=== PATIENT | female | born 1985 | race African-American/Black ===

== ENCOUNTER 2017-03-06 07:00 | Emergency (ER) | payer SELFPAY ==
[2017-03-06] MEDS ORDERED: predniSONE 20 MG TAB ONE (07:14)
== END 2017-03-06 08:17 | disposition home or self-care (01) ==
LOC: ERS 07:00
DX: J45.901 Unspecified asthma with (acute) exacerbation (principal); Z79.899 Other long term (current) drug therapy
CPT/HCPCS: 94640; J7506; J7620

== ENCOUNTER 2017-03-17 22:34 | Emergency (ER) | payer SELFPAY ==
[2017-03-17] MEDS ORDERED: Dexamethasone 4 MG TAB ONE ×2 (23:14)
[2017-03-17] MEDS ORDERED: Acetaminophen 500 MG TAB ONE (23:14)
--- NOTE | 2017-03-17 23:36 | RAD ---
PA AND LATERAL CHEST: History: Cough. FINDINGS: Comparison made with exam of 01-14-17. The heart size is normal. The lungs are expanded and clear. The bony thorax is normal. IMPRESSION: Normal exam. POS: [facility]
== END 2017-03-18 01:04 | disposition home or self-care (01) ==
LOC: ERS 22:34
DX: J45.901 Unspecified asthma with (acute) exacerbation (principal)
CPT/HCPCS: 71020; 94640; J7620; J8540

== ENCOUNTER 2017-04-09 07:56 | Emergency (ER) | payer SELFPAY ==
--- NOTE | 2017-04-09 09:22 | RAD ---
FRONTAL AND LATERAL IMAGING OF THE CHEST: Date: 04/09/17 COMPARISON: 03/17/17. HISTORY: Dyspnea. FINDINGS: No pneumothorax, pleural fluid, focal consolidation, or alveolar edema. Heart and mediastinal contou rs are grossly unremarkable. IMPRESSION: No acute findings. POS: [facility]
[2017-04-09] MEDS ORDERED: Acetaminophen 500 MG TAB ONE (09:56)
== END 2017-04-09 09:53 | disposition home or self-care (01) ==
LOC: ERS 07:56
DX: J45.901 Unspecified asthma with (acute) exacerbation (principal); D64.9 Anemia, unspecified
CPT/HCPCS: 71020; 94640; J7620

== ENCOUNTER 2017-06-11 06:30 | Emergency (ER) | payer BC, SELFPAY ==
[2017-06-11] MEDS ORDERED: Acetaminophen 500 MG TAB ONE (08:05)
== END 2017-06-11 08:49 | disposition home or self-care (01) ==
LOC: ERS 06:30
DX: J45.901 Unspecified asthma with (acute) exacerbation (principal); D64.9 Anemia, unspecified
CPT/HCPCS: J7620

== ENCOUNTER 2017-06-25 19:56 | Emergency (ER) | payer BC, SELFPAY ==
[2017-06-25] MEDS ORDERED: methylPREDNISolone Sod Succ/PF 125 MG/2 ML VIAL ONE (20:16)
[2017-06-25] MEDS ORDERED: Sterile Water 10 ML ONE (21:04)
--- NOTE | 2017-06-25 21:29 | RAD ---
RADIOGRAPH CHEST TWO VIEW SERIES 06/25/17 COMPARISON: 04/09/17 CLINICAL HISTORY: Asthma exacerbation with history of dyspnea. FINDINGS: There is stable hyperinflation of the lungs. No evidence of consolidation, effusion or discrete pneum othorax. The cardiac silhouette is normal in size. Osseous structures are unremarkable. IMPRESSION: No focal consolidation. Chest is stable in appearance to prior exam. POS: [facility]
== END 2017-06-25 22:19 | disposition home or self-care (01) ==
LOC: ERS 19:56
DX: J45.901 Unspecified asthma with (acute) exacerbation (principal); Z79.899 Other long term (current) drug therapy
CPT/HCPCS: 71046; 94640; 96372; A4216; J2930; J7620

== ENCOUNTER 2017-09-26 12:05 | Emergency (ER) | payer BC, SELFPAY ==
[2017-09-26] MEDS ORDERED: Dexamethasone 4 mg/ml Vial ONE (13:19)
== END 2017-09-26 13:38 | disposition home or self-care (01) ==
LOC: ERS 12:05
DX: J45.901 Unspecified asthma with (acute) exacerbation (principal)
CPT/HCPCS: 99283; J1100

== ENCOUNTER 2017-09-29 00:58 | Observation (INO) | payer BC ==
[2017-09-29] MEDS ORDERED: Magnesium Sulfate 2 GM/100 ML BAG ONE (04:05)
[2017-09-29] MEDS ORDERED: methylPREDNISolone Sod Succ/PF 125 MG/2 ML VIAL ONE (04:05)
[2017-09-29 04:33] LABS: #Basophils 0.1 thou/uL (0.0-0.2); #Eosinphils 1.5 thou/uL (0.0-0.7); #Lymphocytes 3.2 thou/uL (1.20-3.40); #Monocytes 1.1 thou/uL (0.11-0.59); #Neutrophils 8.8 thou/uL (1.40-6.50); %Basophils 0.8 % (0.0-1.0); %Lymphocytes 21.9 % (21.0-51.0); %Monocytes 7.6 % (0.0-10.0); %Neutrophils 59.8 % (42.0-75.0); Hemoglobin 14.5 g/dL (12.0-16.0); Mean Corpuscular HGB CONC 33.9 g/dL (32.0-36.0); Mean Corpuscular Hemoglobin 32.1 pg (27.0-31.0); Mean Corpuscular Volume 94.4 fl (81.0-99.0); Mean Platelet Volume 7.3 fL (7.4-10.4); Platelet Count 281 thou/uL (130-400); RBC Distribution Width 11.6 % (11.5-14.5); Red Blood Cell (RBC) Count 4.51 mill/uL (4.20-5.40); White Blood Cell (WBC) Count 14.8 thou/uL (4.8-10.8)
[2017-09-29 04:49] LABS: ALT (SGPT) 17 U/L (8-55); AST (SGOT) 19 U/L (5-34); Albumin 4.2 g/dL (3.5-5.0); Alkaline Phosphatase 53 U/L (40-150); Anion Gap 13 mmol/L (10-20); BUN (Urea Nitrogen) 15 mg/dL (7.0-18.7); Bilirubin, Total 0.2 mg/dL (0.2-1.2); Calc. Creatinine Clearance 0 mL/min (70-130); Calcium 8.9 mg/dL (7.8-10.44); Carbon Dioxide 22 mmol/L (22-29); Chloride 108 mmol/L (98-107); Estimated GFR-MDRD Greater than 90; Globulin 2.9 g/dL (2.4-3.5); Glucose 107 mg/dL (70-105); Potassium 3.8 mmol/L (3.5-5.1); Protein, Total 7.1 g/dL (6.0-8.3); Sodium 139 mmol/L (136-145)
[2017-09-29 05:48] VITALS: BMI 29.5
[2017-09-29] MEDS: Sodium Chloride 0.9% 1,000 ML IV SCH (06:18)
[2017-09-29] MEDS: Albuterol Sulfate 2.5 mg/3 ml Neb NEB SCH ×3 (08:11→15:19)
[2017-09-29] MEDS: Acetaminophen 325 MG TAB PO PRN ×2 (09:24→20:01)
[2017-09-29] MEDS: Famotidine 20 MG TAB PO SCH ×2 (09:24→20:01)
[2017-09-29] MEDS: Docusate 100 MG CAP PO SCH ×2 (09:24→20:01)
[2017-09-29] MEDS: Heparin 5,000 UNITS/ML VIAL SC SCH ×3 (09:25→20:01)
[2017-09-29] MEDS: Diabetic Tussin 200 MG/10 ML UDCUP PO PRN (10:18)
--- NOTE | 2017-09-29 12:47 | RAD ---
CHEST 2 VIEWS: Date: 09/29/17 HISTORY: Shortness of breath. COMPARISON: Radiograph dated 06/25/17. FINDINGS: Lungs are clear. No pneumothorax or effusion. Cardiac silhouette and mediastinal contours within norm al limits. IMPRESSION: No acute intrathoracic abnormality. POS: [facility]
[2017-09-29] MEDS: traMADol HCl 50 MG TAB PO PRN (14:50)
--- NOTE | 2017-09-29 17:44 | HP ---
CHIEF COMPLAINT: Shortness of breath. HISTORY OF PRESENT ILLNESS: The patient is a very pleasant 32-year-old female with history of asthma , who presents to the hospital with complaints of shortness of breath. The patient stated that she c milena to the hospital last for shortness of breath and initially was discharged home with p.o. steroids. The patient stated that she felt a little bit better; however, started feeling short of b reath. The patient states that at home she has been using her rescue inhaler and her nebulizer aroun d the clock that is when she decided she is going to come in for further evaluation. The patient den ies any fevers or chills. Has had a cough, has been coughing up some yellow colored sputum. PAST MEDICAL HISTORY: History of asthma and anemia. PAST SURGICAL HISTORY: She had a x3. FAMILY HISTORY: Mother was alcoholic, hypertension, and diabetes. Father had a brain tumor. SOCIAL HISTORY: She denies any smoking, alcohol or drug use. REVIEW OF SYSTEMS: The following complete review of systems was negative, unless otherwise mentioned in the HPI or below: Constitutional: Weight loss or gain, ability to conduct usual activities. Skin: Rash, itching. Eyes: Double vision, pain. ENT/Mouth: Nose bleeding, neck stiffness, pain, tenderness. Cardiovascular: Palpitations, dyspnea on exertion, orthopnea. Respiratory: Shortness of breath, wheezing, cough, hemoptysis, fever or night sweats. Gastrointestinal: Poor appetite, abdominal pain, heartburn, nausea, vomiting, constipation, or diarrhea. Genitourinary: Urgency, frequency, dysuria, nocturia. Musculoskeletal: Pain, swelling. Neurologic/Psychiatric: Anxiety, depression. Allergy/Immunologic: Skin rash, bleeding tendency. ALLERGIES: She is allergic to CODEINE. PHYSICAL EXAMINATION: VITAL SIGNS: Temperature of 98.5, pulse of 96, 92% on room air, 127/73. GENERAL: She is awake, alert, oriented x3, does not appear in any distress. CARDIOVASCULAR: S1, S2 present. No murmurs, rubs or gallops. LUNGS: Mild rhonchi and wheezing. Expiratory wheezing noted all around the lung area. ABDOMEN: Soft, nontender. Bowel sounds are present x2. No hepatomegaly or splenomegaly noted. EXTREMITIES: No edema. Pedal pulses present x2. SKIN: No petechia or rashes noted on the skin. LABORATORY DATA: As following: WBC of 14.8, hemoglobin of 14.5, hematocrit of 42.6, platelets of 28 1. No bandemia noted. Chemistry: Sodium of 139, potassium of 3.8, chloride of 108, BUN of 15, crea tinine 0.79. Chest x-ray ordered, indicated no acute abnormalities. ASSESSMENT AND PLAN: The patient is a very pleasant 32-year-old female who presents to the hospital with complaints of shortness of breath. 1. Acute asthma exacerbation. I will start the patient on some DuoNebs. We will start patient on I V steroids. Respiratory viral panel negative. Chest x-ray, no acute infiltrates noted. The patient states that she has been using her rescue inhaler a lot recently and also on a daily basis. She use s it about 3-4 times a day. The patient may benefit on discharge with an inhaled steroid. The patie nt states that she has insurance now, so she will be able to follow up with a [facility] service as outpat ient. 2. Mildly elevated WBCs. This could be secondary to oral steroids that she was taking. We will con tinue to monitor. 3. Deep venous thrombosis prophylaxis. We will put patient on subcu heparin.
[2017-09-30] MEDS: traMADol HCl 50 MG TAB PO PRN (04:28)
[2017-09-30 05:01] LABS: Anion Gap 12 mmol/L (10-20); BUN (Urea Nitrogen) 10 mg/dL (7.0-18.7); Calc. Creatinine Clearance 135 mL/min (70-130); Calcium 9.3 mg/dL (7.8-10.44); Carbon Dioxide 22 mmol/L (22-29); Chloride 106 mmol/L (98-107); Estimated GFR-MDRD Greater than 90; Glucose 140 mg/dL (70-105); Potassium 4.2 mmol/L (3.5-5.1); Sodium 136 mmol/L (136-145)
[2017-09-30 06:39] LABS: Band 5 % (5-11); Hemoglobin 13.5 g/dL (12.0-16.0); Lymphocytes 11 % (21-51); MDiff Complete? YES; Mean Corpuscular HGB CONC 34.1 g/dL (32.0-36.0); Mean Corpuscular Hemoglobin 32.4 pg (27.0-31.0); Mean Corpuscular Volume 95.1 fl (81.0-99.0); Mean Platelet Volume 7.6 fL (7.4-10.4); Monocytes 4 % (0-10); Neutrophil 80 % (42-75); PLT Morphology Comment Appears Adequate; Platelet Count 246 thou/uL (130-400); RBC Distribution Width 11.6 % (11.5-14.5); RBC Morphology Normal; Red Blood Cell (RBC) Count 4.18 mill/uL (4.20-5.40); White Blood Cell (WBC) Count 22.7 thou/uL (4.8-10.8)
[2017-09-30] MEDS: Docusate 100 MG CAP PO SCH (08:21)
[2017-09-30] MEDS: Famotidine 20 MG TAB PO SCH (08:21)
[2017-09-30] MEDS: Heparin 5,000 UNITS/ML VIAL SC SCH ×2 (08:21→15:56)
[2017-09-30 11:17] VITALS: BP 136/76; TEMP 97.8
[2017-09-30] MEDS: Diabetic Tussin 200 MG/10 ML UDCUP PO PRN (12:39)
--- NOTE | 2017-10-01 10:44 | DIS ---
DATE OF DISCHARGE: 09/30/2017 DISCHARGE DISPOSITION: Home. FOLLOWUP: Follow up with primary care physician at [facility] in 1 week. The patient was seen and examined on the day of discharge. Denies any new complaints. Shortness of breath and wheezing have significantly improved. DISCHARGE MEDICATIONS: 1. Prednisone taper. 2. Qvar 2 puffs b.i.d. 3. Other home medications were resumed. BRIEF HOSPITAL COURSE: The patient is a 32-year-old female with asthma who presented to the hospital with shortness of breath. Please refer to the history and physical dated 09/29/2017 for further det ails. The patient was admitted to the hospital with a diagnosis of acute asthma exacerbation. She was star laurita on oxygen, nebulizer treatments, IV steroids with good improvement. Her shortness of breath has significantly improved. Respiratory viral panel was negative. She appears stable for discharge. He r O2 saturation is 97% on room air. FINAL DIAGNOSES: 1. Acute asthma exacerbation. 2. History of mild persistent asthma. 3. Chronic anemia. 4. Leukocytosis, probably secondary to steroids. 5. CODEINE allergy. 6. Seasonal allergies. Plan of care was discussed with the patient. She stated understanding.
== END 2017-09-30 17:50 | disposition home or self-care (01) ==
LOC: ERS 00:58 → 2SW 04:42
PROVIDERS: ADMIT Internal Medicine; ATTEND Internal Medicine
DX: J45.31 Mild persistent asthma with (acute) exacerbation (principal); D64.9 Anemia, unspecified; D72.829 Elevated white blood cell count, unspecified; Z88.5 Allergy status to narcotic agent; Z98.891 History of uterine scar from previous surgery
CPT/HCPCS: 36415; 71046; 80048; 80053; 85025; 87633; 94640; 96365; 96375; 96376; A4216; G0378; J1644; J2920; J2930; J3475; J7611; J7620

== ENCOUNTER 2018-03-15 09:14 | Emergency (ER) | payer BC ==
[2018-03-15] MEDS ORDERED: predniSONE 20 MG TAB ONE (09:39)
== END 2018-03-15 10:35 | disposition home or self-care (01) ==
LOC: ERS 09:14
DX: J45.901 Unspecified asthma with (acute) exacerbation (principal); J06.9 Acute upper respiratory infection, unspecified; D64.9 Anemia, unspecified; Z79.899 Other long term (current) drug therapy
CPT/HCPCS: 94640; J7506; J7620

== ENCOUNTER 2018-08-21 07:02 | Emergency (ER) | payer BC ==
--- NOTE | 2018-08-21 08:36 | RAD ---
2 VIEW CHEST: Date: 08/21/18 HISTORY: Cough. FINDINGS: Lungs are clear. No infiltrate. Heart and mediastinum unremarkable. Osseous structures unremarkable. IMPRESSION: No acute findings. POS: [facility]
== END 2018-08-21 10:26 | disposition home or self-care (01) ==
LOC: ERS 07:02
DX: J45.901 Unspecified asthma with (acute) exacerbation (principal); D64.9 Anemia, unspecified; Z79.51 Long term (current) use of inhaled steroids
CPT/HCPCS: 71046; 94640; J7620

== ENCOUNTER 2018-11-03 10:57 | Emergency (ER) | payer BC ==
[2018-11-03] MEDS ORDERED: Dexamethasone 10 MG/ML VIAL ONE (12:31)
--- NOTE | 2018-11-03 12:49 | RAD ---
PA AND LATERAL VIEWS CHEST: HISTORY: Cough. FINDINGS: Comparison is made with the exam of 08/21/2018. The heart size is normal. The lungs are expanded without focal areas of consolidation, pneumothorace s, or pleural effusions. No acute osseous abnormalities are seen. IMPRESSION: No radiographic evidence of acute cardiopulmonary process. POS: [facility]
== END 2018-11-03 13:06 | disposition home or self-care (01) ==
LOC: ERS 10:57
DX: J45.901 Unspecified asthma with (acute) exacerbation (principal); D64.9 Anemia, unspecified; Z79.51 Long term (current) use of inhaled steroids
CPT/HCPCS: 71046; 94640; J1100; J7620

== ENCOUNTER 2018-11-06 22:38 | Emergency (ER) | payer BC ==
[2018-11-06] MEDS ORDERED: methylPREDNISolone Sod Succ/PF 125 MG/2 ML VIAL ONE (22:47)
[2018-11-06] MEDS ORDERED: Magnesium 2 GM/50 ML BAG (IN WATER) ONE (22:47)
--- NOTE | 2018-11-06 23:03 | RAD ---
AP CHEST: 11/06/18 HISTORY: Dyspnea. The lungs are clear. Heart and mediastinum unremarkable. IMPRESSION: Unremarkable chest. POS: [facility]
[2018-11-06 23:05] LABS: #Basophils 0.1 thou/uL (0.0-0.2); #Eosinphils 0.4 thou/uL (0.0-0.7); #Lymphocytes 3.8 thou/uL (1.20-3.40); #Monocytes 0.5 thou/uL (0.11-0.59); #Neutrophils 5.3 thou/uL (1.40-6.50); %Basophils 0.7 % (0.0-1.0); %Eosinophils 3.6 % (0.0-10.0); %Lymphocytes 38.3 % (21.0-51.0); %Monocytes 4.5 % (0.0-10.0); %Neutrophils 52.9 % (42.0-75.0); Hemoglobin 14.7 g/dL (12.0-16.0); Mean Corpuscular HGB CONC 33.4 g/dL (32.0-36.0); Mean Corpuscular Hemoglobin 32.6 pg (27.0-31.0); Mean Corpuscular Volume 97.4 fL (78.0-98.0); Mean Platelet Volume 7.6 fL (7.4-10.4); Platelet Count 297 thou/uL (130-400); RBC Distribution Width 11.7 % (11.5-14.5); Red Blood Cell (RBC) Count 4.51 mill/uL (4.20-5.40)
[2018-11-06 23:15] LABS: BHCG - Serum Negative (NEGATIVE); Pregs Control Background? CLEAR/WHITE (CLR/WHITE); Pregs Control Bar Appear? YES (CONTROL BAR)
[2018-11-06 23:29] LABS: ALT (SGPT) 41 U/L (8-55); AST (SGOT) 33 U/L (5-34); Albumin 4.4 g/dL (3.5-5.0); Alkaline Phosphatase 56 U/L (40-150); Anion Gap 14 mmol/L (10-20); BUN (Urea Nitrogen) 10 mg/dL (7.0-18.7); Bilirubin, Total 0.4 mg/dL (0.2-1.2); Calc. Creatinine Clearance 0 mL/min (70-130); Calcium 9.3 mg/dL (7.8-10.44); Carbon Dioxide 22 mmol/L (22-29); Chloride 106 mmol/L (98-107); Estimated GFR-MDRD Greater than 90; Glucose 113 mg/dL (70-105); Potassium 3.3 mmol/L (3.5-5.1); Protein, Total 7.4 g/dL (6.0-8.3); Sodium 139 mmol/L (136-145)
== END 2018-11-07 01:42 | disposition home or self-care (01) ==
LOC: ERS 22:38
DX: J45.901 Unspecified asthma with (acute) exacerbation (principal); Z79.51 Long term (current) use of inhaled steroids
CPT/HCPCS: 71045; 80053; 84703; 85025; 96374; 96375; J2930; J3475

== ENCOUNTER 2019-03-30 07:21 | Emergency (ER) | payer BC ==
[2019-03-30] MEDS ORDERED: predniSONE 20 MG TAB ONE (08:16)
== END 2019-03-30 08:08 | disposition home or self-care (01) ==
LOC: ERS 07:21
DX: J45.901 Unspecified asthma with (acute) exacerbation (principal); J06.9 Acute upper respiratory infection, unspecified
CPT/HCPCS: J7512; J7620

== ENCOUNTER 2019-05-23 19:06 | Emergency (ER) | payer BC ==
[2019-05-23] MEDS ORDERED: Ibuprofen 200 MG TAB ONE (19:49)
[2019-05-23] MEDS ORDERED: Adacel (T-DAP) 0.5 ML SYRINGE ONE (19:50)
[2019-05-23] MEDS ORDERED: Bacitracin 1 PK ONE (20:06)
--- NOTE | 2019-05-23 20:36 | RAD ---
EXAM: LEFT HAND THREE VIEWS: 05/23/19 HISTORY: Injury, laceration, swelling. FINDINGS: No evidence for an acute fracture or dislocation. There is soft tissue swelling, particularly over th e dorsal aspect of the hand. No acute fracture or dislocation. IMPRESSION: Soft tissue swelling, particularly over the dorsal aspect of the hand. No fracture or dislocation. No overt foreign body. POS: [facility]
[2019-05-23] MEDS ORDERED: HYDROcodone/Acetaminophen 5/325 mg Tablet ONE (20:44)
== END 2019-05-23 20:45 | disposition home or self-care (01) ==
LOC: ERS 19:06
DX: S60.222A Contusion of left hand, initial encounter (principal); J45.909 Unspecified asthma, uncomplicated; D64.9 Anemia, unspecified; Z79.51 Long term (current) use of inhaled steroids; W25.XXXA Contact with sharp glass, initial encounter
CPT/HCPCS: 90471; 90715

== ENCOUNTER 2019-08-08 18:03 | Emergency (ER) | payer BC ==
[2019-08-08] MEDS ORDERED: predniSONE 20 MG TAB ONE (18:19)
== END 2019-08-08 19:18 | disposition home or self-care (01) ==
LOC: ERS 18:03
DX: J45.901 Unspecified asthma with (acute) exacerbation (principal); D64.9 Anemia, unspecified; Z79.899 Other long term (current) drug therapy
CPT/HCPCS: 94640; J7512; J7620

== ENCOUNTER 2019-12-22 08:22 | Emergency (ER) | payer BC | END 2019-12-22 09:30 | disposition home or self-care (01) | LOC: ERS 08:22 | DX: K02.9 Dental caries, unspecified (principal); J45.909 Unspecified asthma, uncomplicated; D64.9 Anemia, unspecified; Z79.51 Long term (current) use of inhaled steroids | CPT/HCPCS: 99282 ==

== ENCOUNTER 2020-05-02 18:16 | Emergency (ER) | payer BC ==
[2020-05-02] MEDS ORDERED: Dexamethasone 10 MG/ML VIAL ONE (21:04)
[2020-05-02] MEDS ORDERED: Magnesium 2 GM/50 ML BAG (IN WATER) ONE (21:04)
--- NOTE | 2020-05-02 21:25 | RAD ---
RADIOGRAPH CHEST 1 VIEW: DATE: 05-02-2020 TIME: 8:58 P.M. HISTORY: 34-year-old female with abnormal breath sounds: Wheezing. FINDINGS: The visualized lung tesfaye are clear. The cardiomediastinal silhouette and hilar shadows are normal. The lateral costophrenic angles are sharp. The osseous structures appear normal. There is no pneu mothorax. IMPRESSION: Negative. payton POS: [facility]
== END 2020-05-02 22:38 | disposition home or self-care (01) ==
LOC: ERS 18:16
DX: J45.901 Unspecified asthma with (acute) exacerbation (principal); D64.9 Anemia, unspecified
CPT/HCPCS: 71045; 96365; J1100; J3475; J7620

== ENCOUNTER 2020-05-27 04:19 | Emergency (ER) | payer BC ==
[2020-05-27] MEDS ORDERED: Acetaminophen 500 MG TAB ONE (04:27)
[2020-05-27] MEDS ORDERED: Ondansetron PF 4 MG/2 ML Vial ONE (04:45)
[2020-05-27 05:06] LABS: BHCG - Serum Negative (NEGATIVE); Pregs Control Background? CLEAR/WHITE (CLR/WHITE); Pregs Control Bar Appear? YES (CONTROL BAR)
[2020-05-27 05:21] LABS: ALT (SGPT) 14 U/L (8-55); AST (SGOT) 25 U/L (5-34); Alkaline Phosphatase 48 U/L (40-110); Anion Gap 15 mmol/L (10-20); BUN (Urea Nitrogen) 10 mg/dL (7.0-18.7); Bilirubin, Total 1.1 mg/dL (0.2-1.2); Calc. Creatinine Clearance 0 mL/min (70-130); Calcium 9.1 mg/dL (7.8-10.44); Carbon Dioxide 21 mmol/L (22-29); Chloride 101 mmol/L (98-107); Globulin 3.7 g/dL (2.4-3.5); Glucose 129 mg/dL (70-105); Lipase 16 U/L (8-78); Potassium 3.9 mmol/L (3.5-5.1); Protein, Total 7.7 g/dL (6.0-8.3); Sodium 133 mmol/L (136-145)
[2020-05-27 05:32] LABS: Bacteria/HPF None Seen HPF (None Seen); Bilirubin Negative (Negative); Blood, Urine 2+ (Negative); Clarity Clear (Clear); Glucose, Urine (Dipstick) Normal (Negative); Ketone, Urine Negative (Negative); Leukocyte 25 Leu/uL (Negative); Nitrite Negative (Negative); Protein, Urine (Dipstick) 20 mg/dL (Neg-Trace); RBC/HPF 0-3 HPF (0-3); Specific Gravity, Urine 1.021 (1.002-1.036); Squamous Epithelial 0-3 HPF (0-3)
[2020-05-27 06:46] LABS: Hemoglobin 11.2 g/dL (12.0-16.0); Mean Corpuscular HGB CONC 33.7 g/dL (32.0-36.0); Mean Corpuscular Hemoglobin 33.2 pg (27.0-31.0); Mean Corpuscular Volume 98.7 fL (78.0-98.0); Mean Platelet Volume 7.5 fL (7.4-10.4); Platelet Count 212 thou/uL (130-400); RBC Distribution Width 11.2 % (11.5-14.5); Red Blood Cell (RBC) Count 3.36 mill/uL (4.20-5.40); White Blood Cell (WBC) Count 11.8 thou/uL (4.8-10.8)
[2020-05-27 07:01] LABS: Band 25 % (5-11); Eosinophils 1 % (0-10); Lymphocytes 4 % (21-51); MDiff Complete? YES; Metamyelocyte 2 % (0-0); Monocytes 5 % (0-10); Neutrophil 63 % (42-75)
--- NOTE | 2020-05-27 08:07 | CT ---
PRELIMINARY REPORT/[facility]/EMERGENCY AFTER HOURS PROCEDURE: EXAM: CT Abdomen and Pelvis with Intravenous Contrast CLINICAL HISTORY: FEVER, N/V/D SINCE YESTERDAY. NO MEDS TAKEN. COVID CONTACTS. TECHNIQUE: Axial computed tomography images of the abdomen and pelvis with intravenous contrast. CONTRAST: With; ISOVUE 370,100mL COMPARISON: None FINDINGS: Partially visualized intrathoracic contents are unremarkable. The liver, gallbladder, pancreas, spleen, and adrenal glands are unremarkable. Kidneys show no worrisome lesions, hydronephrosis, or calculi. Urinary bladder is unremarkable. Antev erted uterus. Small and large bowel are normal in caliber. Predominantly fluid-filled small bowel. There is distal small bowel wall thickening and adjacent stranding and mesenteric vascular engorgement. Appendix is n ormal. No free air, free or focal fluid, or lymphadenopathy identified. Aorta is normal in course and caliber. Superficial soft tissues are unremarkable. No acute or aggressive appearing skeletal findings. IMPRESSION: Infectious or inflammatory enterocolitis. Normal appendix. No obstruction, pneumoperitoneum or absces s. Consider gastroenterology follow-up as warranted. ELECTRONICALLY SIGNED BY: Denver Blake MD May 27, 2020 5:52:18 AM [facility] [employer] This report is intended for review by the ordering physician only, in accordance of law. If you recei ve this report in error, please call [facility] at [phone]. FINAL REPORT EMERGENT AFTER HOURS CT OF THE ABDOMEN AND PELIS WITH CONTRAST: COMPARISON: 08/08/2013. FINDINGS/IMPRESSION: I agree with the findings and impression given in the preliminary report per [facility] physici an. There is fluid-filled large and small bowel which could be secondary to enterocolitis. No bowel obstruction is seen at this time. POS: [facility]
[2020-05-27 08:51] LABS: SARS-CoV-2 MS2 Positive; SARS-CoV-2 N Gene Negative; SARS-CoV-2 S Gene Negative; SARS-CoV-2 by NAA Not Detected (NotDetected); SARS-CoV-2 orf1ab Negative
[2020-05-27] MEDS ORDERED: Iopamidol-370 76% 500 ML 1 ML ONE (11:45)
== END 2020-05-27 06:20 | disposition home or self-care (01) ==
LOC: ERS 04:19
DX: K52.9 Noninfective gastroenteritis and colitis, unspecified (principal); Z20.828 Contact with and (suspected) exposure to other viral communicable diseases; J45.909 Unspecified asthma, uncomplicated
CPT/HCPCS: 74177; 80053; 81003; 81015; 83605; 83690; 84703; 85025; 87635; 96361; 96374; J2405; Q9967; U0003

== ENCOUNTER 2020-09-13 09:59 | Emergency (ER) | payer BC, SELFPAY | END 2020-09-13 11:30 | disposition home or self-care (01) | LOC: ERS 09:59 | DX: J45.901 Unspecified asthma with (acute) exacerbation (principal); D50.9 Iron deficiency anemia, unspecified | CPT/HCPCS: 71045; 93005 ==

== ENCOUNTER 2021-03-14 12:15 | Emergency (ER) | payer SELFPAY ==
[2021-03-14] MEDS ORDERED: Magnesium 2 GM/50 ML BAG (IN WATER) ONE (12:45)
[2021-03-14] MEDS ORDERED: Albuterol Sulfate 2.5 mg/0.5 ml Neb ONE (12:45)
[2021-03-14] MEDS ORDERED: methylPREDNISolone Sod Succ/PF 125 MG/2 ML VIAL ONE (12:45)
[2021-03-14] MEDS ORDERED: Ketorolac Tromethamine 30 MG/ML VIAL ONE (13:24)
[2021-03-14 23:48] LABS: SARS-CoV-2 PCR by NAA Not Detected (NotDetected)
== END 2021-03-14 14:52 | disposition home or self-care (01) ==
LOC: ERS 12:15
DX: J45.901 Unspecified asthma with (acute) exacerbation (principal); Z20.822 Contact with and (suspected) exposure to COVID-19; D64.9 Anemia, unspecified
CPT/HCPCS: 96365; 96375; J1885; J2930; J3475; J7611; J7620; U0003; U0005

== ENCOUNTER 2021-04-07 05:13 | Emergency (ER) | payer SELFPAY ==
[2021-04-07] MEDS ORDERED: Magnesium 2 GM/50 ML BAG (IN WATER) ONE (05:33)
[2021-04-07] MEDS ORDERED: methylPREDNISolone Sod Succ/PF 125 MG/2 ML VIAL ONE (05:33)
[2021-04-07] MEDS ORDERED: Acetaminophen 500 MG TAB ONE (06:02)
== END 2021-04-07 06:20 | disposition home or self-care (01) ==
LOC: ERS 05:13
DX: J45.901 Unspecified asthma with (acute) exacerbation (principal); D50.9 Iron deficiency anemia, unspecified; Z79.899 Other long term (current) drug therapy
CPT/HCPCS: 71045; 94640; 96365; 96375; J2930; J3475; J7620

== ENCOUNTER 2022-01-06 09:44 | Emergency (ER) | payer SELFPAY ==
[2022-01-06] MEDS ORDERED: Albuterol Sulfate 2.5 mg/0.5 ml Neb ONE ×3 (10:42→10:44)
[2022-01-06] MEDS ORDERED: Albuterol Sulfate 2.5 mg/3 ml Neb ONE (10:43)
[2022-01-06] MEDS ORDERED: prednisoLONE 10 MG ODT TAB ONE (12:00)
== END 2022-01-06 12:08 | disposition home or self-care (01) ==
LOC: ERS 09:44
DX: J45.901 Unspecified asthma with (acute) exacerbation (principal); D50.9 Iron deficiency anemia, unspecified; Z79.899 Other long term (current) drug therapy
CPT/HCPCS: 94644; J7510; J7611; J7620

== ENCOUNTER 2022-03-26 08:49 | Emergency (ER) | payer SELFPAY ==
[2022-03-26] MEDS ORDERED: Dexamethasone 10 MG/ML VIAL ONE (10:22)
== END 2022-03-26 11:19 | disposition home or self-care (01) ==
LOC: ERS 08:49
DX: J45.901 Unspecified asthma with (acute) exacerbation (principal); D64.9 Anemia, unspecified
CPT/HCPCS: 71045; 96372; J1100; J7620

== ENCOUNTER 2022-09-21 13:59 | Emergency (ER) | payer SELFPAY ==
[2022-09-21] MEDS ORDERED: Ipratropium/Albuterol 3 ML NEB ONE (15:52)
[2022-09-21] MEDS ORDERED: Ipratropium Bromide 2.5 ml Neb ONE (17:11)
[2022-09-21] MEDS ORDERED: Dexamethasone 4 MG TAB ONE (17:17)
== END 2022-09-21 18:46 | disposition home or self-care (01) ==
LOC: ERS 13:59
DX: J45.901 Unspecified asthma with (acute) exacerbation (principal)
CPT/HCPCS: 71045; J7620; J8540

== ENCOUNTER 2023-02-05 08:43 | Emergency (ER) | payer SELFPAY | END 2023-02-05 09:40 | disposition home or self-care (01) | LOC: ERS 08:43 | DX: R05.9 Cough, unspecified (principal); Z20.822 Contact with and (suspected) exposure to COVID-19 | CPT/HCPCS: 87635; 99283 ==

== ENCOUNTER 2023-12-04 07:53 | Emergency (ER) | payer SELFPAY ==
[2023-12-04] MEDS ORDERED: Ketorolac Tromethamine 30 MG (1 mL) VIAL ONE (08:10)
== END 2023-12-04 09:13 | disposition home or self-care (01) ==
LOC: ERS 07:53
DX: M25.561 Pain in right knee (principal)
CPT/HCPCS: 96372; J1885

== ENCOUNTER 2024-03-05 05:12 | Emergency (ER) | payer BC ==
[2024-03-05] MEDS ORDERED: Aspirin Chewable 81 MG TAB ONE (05:36)
[2024-03-05 06:01] LABS: #Basophils Less than 0.03 10x3/uL (0.0-0.2); %Basophils 0.3 % (0.0-1.0); %Lymphocytes 35.7 % (21.0-51.0); %Monocytes 7.7 % (0.0-10.0); Hematocrit 40.9 % (36.0-47.0); Hemoglobin 13.9 g/dL (12.0-16.0); Mean Corpuscular Hemoglobin 32.9 pg (27.0-31.0); Mean Corpuscular Volume 96.7 fL (78.0-98.0); Mean Platelet Volume 9.2 fL (7.4-10.4); Platelet Count 248 10x3/uL (130-400); Red Blood Cell (RBC) Count 4.23 mill/uL (4.20-5.40)
[2024-03-05 06:10] LABS: BHCG - Serum Negative (NEGATIVE); Pregs Control Background? CLEAR/WHITE (CLR/WHITE); Pregs Control Bar Appear? YES (CONTROL BAR)
[2024-03-05 06:16] LABS: ALT (SGPT) 28 U/L (8-55); AST (SGOT) 33 U/L (5-34); Albumin 3.7 g/dL (3.5-5.0); Alkaline Phosphatase 45 U/L (40-110); Anion Gap 13 mmol/L (10-20); BUN (Urea Nitrogen) 12 mg/dL (7.0-18.7); Bilirubin, Total 0.4 mg/dL (0.2-1.2); Calc. Creatinine Clearance 0 mL/min (70-130); Calcium 8.9 mg/dL (7.8-10.44); Carbon Dioxide 22 mmol/L (22-29); Chloride 109 mmol/L (98-107); Estimated GFR 87; Globulin 3.5 g/dL (2.4-3.5); Glucose 102 mg/dL (70-105); Potassium 3.7 mmol/L (3.5-5.1); Protein, Total 7.2 g/dL (6.0-8.3); Sodium 140 mmol/L (136-145)
[2024-03-05 06:21] LABS: Troponin I Less than 0.010 ng/mL (< 0.028)
== END 2024-03-05 06:46 | disposition home or self-care (01) ==
LOC: ERS 05:12
DX: M94.0 Chondrocostal junction syndrome [Tietze] (principal); J45.909 Unspecified asthma, uncomplicated
CPT/HCPCS: 36415; 71045; 80053; 84484; 84703; 85025; 93005

== ENCOUNTER 2024-04-10 08:23 | Emergency (ER) | payer BC ==
[2024-04-10] MEDS ORDERED: Ketorolac Tromethamine 30 MG (1 mL) VIAL ONE (09:53)
== END 2024-04-10 15:17 | disposition home or self-care (01) ==
LOC: ERS 08:23
DX: R07.81 Pleurodynia (principal)
CPT/HCPCS: 96372; 99283; J1885

== ENCOUNTER 2025-06-02 09:20 | Emergency (ER) | payer OTHER ==
[2025-06-02] MEDS ORDERED: Metoclopramide HCl 10 MG (2 mL) VIAL ONE (09:34)
[2025-06-02] MEDS ORDERED: Acetaminophen 500 MG TAB ONE (09:36)
[2025-06-02] MEDS ORDERED: diphenhydrAMINE 50 MG/ML VIAL ONE (09:55)
[2025-06-02] MEDS ORDERED: Ketorolac Tromethamine 30 MG (1 mL) VIAL ONE (09:55)
== END 2025-06-02 13:45 | disposition home or self-care (01) ==
LOC: ERS 09:20
DX: R51.9 Headache, unspecified (principal)
CPT/HCPCS: 96365; 96375; J1200; J1885; J2765